=== PATIENT | male | born 1995 | race Caucasian/White ===

== ENCOUNTER 2016-02-01 14:59 | Outpatient (RCR) | payer OTHER ==
[~2016-02-01 14:59] MED LIST: DYNAPEN 250MG250 MG PO; HUMALOG100 U/ML; INSULIN 50/5100 U/ML IJ; LANTUS100 U/ML SQ; NOVOLOG 100U100 U/M1 SQ; insulin
== END 2016-04-19 ==
LOC: WSOH
DX: S51.802A Unspecified open wound of left forearm, initial encounter (principal)

== ENCOUNTER 2016-06-15 09:04 | Inpatient (IN) | payer BC ==
[~2016-06-15] VITALS: Ht 182.9 cm; Wt 85.9 kg
[2016-06-15] VITALS (175 sets, daily range): BP systolic 112–133; BP diastolic 60–68; PULSE 91–115; TEMP 97.1–99.3; O2SAT 97–100
[2016-06-15 09:36] LABS: VENOUS BLOOD GAS BE -21.1 (-4-4); VENOUS BLOOD GAS SAO2 59.1 % (60-80)
[2016-06-15 09:37] LABS: VENOUS BLOOD GAS SITE VENIPUNCTURE
[2016-06-15 09:52] LABS: BASO % 0.2 % (0.0-2.0); EOS % 0.1 % (0-4.0); GRAN % 83.7 % (42.2-75.2); HEMATOCRIT 50.3 % (42.0-52.0); HEMOGLOBIN 17.1 g/dl (13.5-18.0); LYMPH # 2.3 (1.2-3.4); LYMPH % 12.2 % (20.0-51.0); MEAN CELL VOLUME 87 fl (80.0-100.0); MEAN CORPUSCULAR HEMOGLOBIN 30 pg (27.0-31.0); MEAN CORPUSCULAR HGB CONC 34 g/dl (33.0-37.0); MEAN PLATELET VOLUME 10.5 fl (7.4-10.4); MONO # 0.6 (0.1-0.6); MONO % 3.4 % (1.7-9.3); PLATELET COUNT 344 K/mm3 (130-400); RED BLOOD COUNT 5.79 M/mm3 (4.20-5.60); REDCELL DISTRIBUTION WIDTH-CV 13.1 % (11.5-14.5); WHITE BLOOD COUNT 19.1 K/mm3 (4.8-10.8)
[2016-06-15 10:07] LABS: ADJUSTED CALCIUM 8.8 mg/dL (8.4-10.2); ALANINE AMINOTRANSFERASE 36 U/L (21-72); ALBUMIN 5.2 gm/dL (3.5-5.0); ALKALINE PHOSPHATASE 147 U/L (50-136); ANION GAP 27 mmol/L (7-16); BILIRUBIN,TOTAL 0.8 mg/dL (0.0-1.0); BLOOD UREA NITROGEN 13 mg/dL (9-20); CALCIUM 9.8 mg/dL (8.4-10.2); CHLORIDE 101 mmol/L (98-107); CREATININE, serum 1.13 mg/dL (0.66-1.25); GLUCOSE 348 mg/dL (74-106); LIPASE 94 U/L (23-300); SODIUM 137 mmol/L (137-145); TOTAL PROTEIN 8.6 gm/dL (6.4-8.2)
[2016-06-15 10:10] LABS: C-REACTIVE PROTEIN < 0.5 mg/dL (0.0-0.9); CARBON DIOXIDE 8 mmol/L (22-30)
[2016-06-15 11:13] LABS: PH 5 (5-8); SQUAMOUS EPITHELIAL 0-2 /hpf; URINE APPEARANCE Clear; URINE BACTERIA None Seen /hpf; URINE BILIRUBIN Negative (NEGATIVE); URINE BLOOD 3+ (NEGATIVE); URINE COLOR Straw; URINE GLUCOSE 3+ (NEGATIVE); URINE KETONE 2+ (NEGATIVE); URINE RBC 0-2 /hpf; URINE UROBILINOGEN Negative (NEGATIVE); URINE WBC 0-2 /hpf
[2016-06-15] MEDS ORDERED: TRESIBA FL200 UNIT/1 SQ (11:19)
[2016-06-15 16:09] LABS: CALCIUM 8.8 mg/dL (8.4-10.2); CREATININE, serum 0.93 mg/dL (0.66-1.25); POTASSIUM 4.5 mmol/L (3.4-5.0)
[2016-06-15 18:00] LABS: CALCIUM 8.8 mg/dL (8.4-10.2); CREATININE, serum 0.96 mg/dL (0.66-1.25); POTASSIUM 4.6 mmol/L (3.4-5.0)
[2016-06-15 19:50] LABS: CALCIUM 8.8 mg/dL (8.4-10.2); CREATININE, serum 0.98 mg/dL (0.66-1.25); POTASSIUM 4.4 mmol/L (3.4-5.0)
[2016-06-15 22:31] LABS: INFLUENZA B NEGATIVE
[2016-06-15 23:12] LABS: CALCIUM 8.9 mg/dL (8.4-10.2); CREATININE, serum 0.84 mg/dL (0.66-1.25); POTASSIUM 3.9 mmol/L (3.4-5.0)
[2016-06-16] VITALS (9 sets, daily range): BP systolic 110–126; BP diastolic 61–83; PULSE 68–96; TEMP 97.1–99; O2SAT 98–99
[2016-06-16 01:19] LABS: CALCIUM 8.9 mg/dL (8.4-10.2); CREATININE, serum 0.84 mg/dL (0.66-1.25); POTASSIUM 4.3 mmol/L (3.4-5.0)
[2016-06-16 02:30] LABS: CALCIUM 8.9 mg/dL (8.4-10.2); CREATININE, serum 0.88 mg/dL (0.66-1.25)
[2016-06-16 06:29] LABS: BASO % 0.1 % (0.0-2.0); EOS # 0.1 (0.0-0.7); GRAN # 4.9 (1.4-6.5); GRAN % 61.6 % (42.2-75.2); HEMATOCRIT 39.7 % (42.0-52.0); HEMOGLOBIN 14.1 g/dl (13.5-18.0); LYMPH # 2.2 (1.2-3.4); LYMPH % 27.5 % (20.0-51.0); MEAN CELL VOLUME 83 fl (80.0-100.0); MEAN CORPUSCULAR HEMOGLOBIN 29 pg (27.0-31.0); MEAN CORPUSCULAR HGB CONC 36 g/dl (33.0-37.0); MONO # 0.8 (0.1-0.6); MONO % 9.5 % (1.7-9.3); PLATELET COUNT 213 K/mm3 (130-400); RED BLOOD COUNT 4.78 M/mm3 (4.20-5.60); WHITE BLOOD COUNT 7.9 K/mm3 (4.8-10.8)
[2016-06-16 06:35] LABS: CALCIUM 8.8 mg/dL (8.4-10.2); CREATININE, serum 0.77 mg/dL (0.66-1.25); MAGNESIUM 1.8 mg/dL (1.6-2.3); POTASSIUM 3.7 mmol/L (3.4-5.0)
[2016-06-16 13:48] LABS: CALCIUM 8.7 mg/dL (8.4-10.2); CREATININE, serum 0.74 mg/dL (0.66-1.25); MAGNESIUM 1.6 mg/dL (1.6-2.3); PHOSPHOROUS 1.4 mg/dL (2.5-4.5); POTASSIUM 3.7 mmol/L (3.4-5.0)
[2016-06-16 16:26] LABS: CALCIUM 8.8 mg/dL (8.4-10.2); CREATININE, serum 0.81 mg/dL (0.66-1.25); POTASSIUM 3.6 mmol/L (3.4-5.0)
[2016-06-16 22:36] LABS: CALCIUM 8.8 mg/dL (8.4-10.2); CREATININE, serum 0.68 mg/dL (0.66-1.25); POTASSIUM 3.2 mmol/L (3.4-5.0)
[2016-06-17] VITALS: BP 104/53; PULSE 56; TEMP 98.1
[2016-06-17 04:00] VITALS: BP 117/76; PULSE 69; TEMP 98.4
[2016-06-17 05:49] LABS: BASO % 0.2 % (0.0-2.0); EOS # 0.1 (0.0-0.7); EOS % 2.4 % (0-4.0); GRAN # 1.9 (1.4-6.5); GRAN % 38.5 % (42.2-75.2); HEMOGLOBIN 13.1 g/dl (13.5-18.0); LYMPH # 2.5 (1.2-3.4); LYMPH % 50.7 % (20.0-51.0); MEAN CELL VOLUME 82 fl (80.0-100.0); MEAN CORPUSCULAR HEMOGLOBIN 30 pg (27.0-31.0); MEAN CORPUSCULAR HGB CONC 36 g/dl (33.0-37.0); MEAN PLATELET VOLUME 10.2 fl (7.4-10.4); MONO # 0.4 (0.1-0.6); PLATELET COUNT 193 K/mm3 (130-400); RED BLOOD COUNT 4.43 M/mm3 (4.20-5.60); REDCELL DISTRIBUTION WIDTH-CV 13.2 % (11.5-14.5)
[2016-06-17 05:57] LABS: HEMATOCRIT 36.5 % (42.0-52.0)
[2016-06-17 06:08] LABS: CALCIUM 8.7 mg/dL (8.4-10.2); CREATININE, serum 0.77 mg/dL (0.66-1.25); POTASSIUM 3.2 mmol/L (3.4-5.0)
[2016-06-17 08:00] VITALS: BP 125/84; PULSE 77; TEMP 97.8
== END 2016-06-17 13:50 | disposition home or self-care (01) | DRG 639 ==
LOC: COL.ER 09:04 → ICU 10:28 → IMCU 06-16 18:27 → ICU 06-16 18:27 → IMCU 06-17 13:50
PROVIDERS: Anesthesiology Critical Care Medicine; Emergency Medicine; Internal Medicine
DX: E10.10 Type 1 diabetes mellitus with ketoacidosis without coma (principal); E86.0 Dehydration; Z79.4 Long term (current) use of insulin
CPT/HCPCS: 99223-AI; 99233-AI; 99239; J1650; J1815; J2405; J3475; J3480; J7030; J7131

== ENCOUNTER → 2017-04-26 | Outpatient (CLI) | payer BC ==
[~2017-04-26] MED LIST changes: +TRESIBA FL200 UNIT/1 SQ
[2017-04-26 11:53] LABS: BASO % 0.1 % (0.0-2.0); EOS # 0.3 (0.0-0.7); EOS % 2.9 % (0-4.0); GRAN # 5.5 (1.4-6.5); HEMATOCRIT 41.2 % (42.0-52.0); LYMPH # 2.6 (1.2-3.4); LYMPH % 29.1 % (20.0-51.0); MEAN CELL VOLUME 83 fl (80.0-100.0); MEAN CORPUSCULAR HEMOGLOBIN 30 pg (27.0-31.0); MEAN CORPUSCULAR HGB CONC 36 g/dl (33.0-37.0); MEAN PLATELET VOLUME 9.2 fl (7.4-10.4); MONO # 0.6 (0.1-0.6); MONO % 6.5 % (1.7-9.3); PLATELET COUNT 299 K/mm3 (130-400); RED BLOOD COUNT 4.98 M/mm3 (4.20-5.60); REDCELL DISTRIBUTION WIDTH-CV 12.1 % (11.5-14.5)
[2017-04-26 13:06] LABS: ALBUMIN 4.1 gm/dL (3.5-5.0); BILIRUBIN,TOTAL 0.5 mg/dL (0.0-1.0); CALCIUM 9.3 mg/dL (8.4-10.2); CREATININE, serum 0.82 mg/dL (0.66-1.25); POTASSIUM 4.3 mmol/L (3.4-5.0); TOTAL PROTEIN 7.3 gm/dL (6.4-8.2)
== END ==
LOC: COL.LAB 10:39
PROVIDERS: Family Medicine
DX: E10.65 Type 1 diabetes mellitus with hyperglycemia (principal)

== ENCOUNTER 2019-01-07 13:48 | Inpatient (IN) | payer BC ==
[2019-01-07] VITALS (350 sets, daily range): BP systolic 140–145; BP diastolic 76–81; PULSE 87–121; TEMP 97.5–98.7; O2SAT 95–100
[~2019-01-07] VITALS: Ht 182.9 cm; Wt 84.5 kg
[2019-01-07 14:34] LABS: BASO # 0.1 (0.0-0.2); BASO % 0.3 % (0.0-2.0); EOS % 0.1 % (0-4.0); GRAN # 12.4 (1.4-6.5); GRAN % 79.5 % (42.2-75.2); HEMATOCRIT 49.8 % (42.0-52.0); HEMOGLOBIN 17.5 g/dl (13.5-18.0); LYMPH # 2.1 (1.2-3.4); LYMPH % 13.4 % (20.0-51.0); MEAN CELL VOLUME 85 fl (80.0-100.0); MEAN CORPUSCULAR HEMOGLOBIN 30 pg (27.0-31.0); MEAN CORPUSCULAR HGB CONC 35 g/dl (33.0-37.0); MONO % 6.3 % (1.7-9.3); PLATELET COUNT 279 K/mm3 (130-400); RED BLOOD COUNT 5.85 M/mm3 (4.20-5.60); REDCELL DISTRIBUTION WIDTH-CV 12.6 % (11.5-14.5)
[2019-01-07 14:43] LABS: ALBUMIN 5.2 gm/dL (3.5-5.0); BILIRUBIN,TOTAL 0.8 mg/dL (0.0-1.0); CALCIUM 9.5 mg/dL (8.4-10.2); CREATININE, serum 1.03 (0.66-1.25); POTASSIUM 4.5 mmol/L (3.4-5.0); TOTAL PROTEIN 9.1 gm/dL (6.4-8.2)
[2019-01-07] MEDS ORDERED: TRESIBA FL200 UNIT/1 SQ (14:46)
[2019-01-07 17:38] LABS: CALCIUM 8.7 mg/dL (8.4-10.2); CREATININE, serum 0.97 (0.66-1.25); MAGNESIUM 1.9 mg/dL (1.6-2.3); PHOSPHOROUS 2.8 mg/dL (2.5-4.5); POTASSIUM 4.6 mmol/L (3.4-5.0)
[2019-01-07 17:58] LABS: ARTERIAL BLD GAS O2 SATURATION 98.2 % (92-100); ARTERIAL BLD GAS TCO2 CT 9.1; ARTERIAL BLOOD GAS BASE EXCESS -16.6 (-2-2); ARTERIAL BLOOD GAS HCO3 8.5 meq/L (22-26); ARTERIAL BLOOD GAS PO2 109.5 mmHg (80-100); ARTERIAL BLOOD GAS pH 7.23 (7.35-7.45)
[2019-01-07 17:59] LABS: ARTERIAL BLOOD GAS PCO2 20.7 mmHg (35-45)
[2019-01-07 18:31] LABS: COLLECTION METHOD CLEAN CATCH
[2019-01-07 18:40] LABS: MUCOUS Present /lpf; PH 6 (5-8); SQUAMOUS EPITHELIAL None Seen /hpf; URINE APPEARANCE Clear; URINE BACTERIA None Seen /hpf; URINE BILIRUBIN Negative (NEGATIVE); URINE BLOOD 1+ (NEGATIVE); URINE COLOR Straw; URINE GLUCOSE 3+ (NEGATIVE); URINE KETONE 2+ (NEGATIVE); URINE LEUKOCYTE ESTERASE Negative (NEGATIVE); URINE NITRATE Negative (NEGATIVE); URINE PROTEIN(semi-quant) 1+ (NEGATIVE); URINE RBC None Seen /hpf; URINE UROBILINOGEN Negative (NEGATIVE); URINE WBC 0-2 /hpf
[2019-01-07 18:59] LABS: HYALINE CAST >12 /lpf
[2019-01-07 19:14] LABS: CALCIUM 8.9 mg/dL (8.4-10.2); CREATININE, serum 0.85 (0.66-1.25); POTASSIUM 4.1 mmol/L (3.4-5.0)
--- NOTE | 2019-01-07 19:48 | NUR ---
CO2 REMAINS AT 11,REPORTED TO SANTY KELLY, NO NEW ORDERS AT THIS TIME, WILL CONTINUE INSULIN DRIP AND MONITORING.
[2019-01-07 21:18] LABS: CALCIUM 8.7 mg/dL (8.4-10.2); CREATININE, serum 0.76 (0.66-1.25); POTASSIUM 3.9 mmol/L (3.4-5.0)
--- NOTE | 2019-01-07 22:01 | NUR ---
3 BS AT GOAL, WILL RECHECK AGAIN IN 2 HOURS PER PROTOCOL.
[2019-01-07 23:21] LABS: CALCIUM 8.9 mg/dL (8.4-10.2); CREATININE, serum 0.77 (0.66-1.25); POTASSIUM 3.8 mmol/L (3.4-5.0)
[2019-01-08] VITALS (243 sets, daily range): BP systolic 126–144; BP diastolic 75–86; PULSE 70–102; TEMP 97.5–98.1; O2SAT 98–100
[2019-01-08 01:31] LABS: CALCIUM 8.7 mg/dL (8.4-10.2); CREATININE, serum 0.72 (0.66-1.25); POTASSIUM 3.6 mmol/L (3.4-5.0)
--- NOTE | 2019-01-08 01:56 | NUR ---
INSULIN DRIP ON HOLD PER PROTOCOL, WILL RECHECK IN 30 MINS.
[2019-01-08 03:23] LABS: CALCIUM 8.6 mg/dL (8.4-10.2); CREATININE, serum 0.64 (0.66-1.25); POTASSIUM 3.6 mmol/L (3.4-5.0)
[2019-01-08 05:29] LABS: BASO % 0.2 % (0.0-2.0); EOS # 0.1 (0.0-0.7); EOS % 1.3 % (0-4.0); GRAN # 5.2 (1.4-6.5); LYMPH # 2.9 (1.2-3.4); LYMPH % 31.8 % (20.0-51.0); MEAN CELL VOLUME 84 fl (80.0-100.0); MEAN CORPUSCULAR HEMOGLOBIN 30 pg (27.0-31.0); MEAN CORPUSCULAR HGB CONC 36 g/dl (33.0-37.0); MEAN PLATELET VOLUME 8.6 fl (7.4-10.4); MONO # 0.9 (0.1-0.6); MONO % 9.5 % (1.7-9.3); PLATELET COUNT 193 K/mm3 (130-400); RED BLOOD COUNT 4.77 M/mm3 (4.20-5.60); REDCELL DISTRIBUTION WIDTH-CV 12.6 % (11.5-14.5)
[2019-01-08 05:38] LABS: CALCIUM 8.6 mg/dL (8.4-10.2); CREATININE, serum 0.66 (0.66-1.25); POTASSIUM 3.5 mmol/L (3.4-5.0)
[2019-01-08 05:53] LABS: HEMOGLOBIN 14.4 g/dl (13.5-18.0)
[2019-01-08 07:30] LABS: CALCIUM 8.8 mg/dL (8.4-10.2); CREATININE, serum 0.78 (0.66-1.25); POTASSIUM 3.6 mmol/L (3.4-5.0)
[2019-01-08 09:19] LABS: CALCIUM 8.7 mg/dL (8.4-10.2); CREATININE, serum 0.73 (0.66-1.25); POTASSIUM 3.5 mmol/L (3.4-5.0)
--- NOTE | 2019-01-08 10:59 | NUR ---
Initial visit; Patient states that he is doing well and thanks Gift Manager for looking in on him and offering God's blessings.
[2019-01-08 12:53] LABS: CALCIUM 8.6 mg/dL (8.4-10.2); CREATININE, serum 0.7 (0.66-1.25); POTASSIUM 4.2 mmol/L (3.4-5.0)
[2019-01-08 16:36] LABS: CALCIUM 8.9 mg/dL (8.4-10.2); CREATININE, serum 0.71 (0.66-1.25); POTASSIUM 3.9 mmol/L (3.4-5.0)
[2019-01-08 20:26] LABS: CALCIUM 8.6 mg/dL (8.4-10.2); CREATININE, serum 0.74 (0.66-1.25); POTASSIUM 3.4 mmol/L (3.4-5.0)
[2019-01-09] VITALS: BP 141/80; PULSE 79; TEMP 98.1
[2019-01-09 00:54] LABS: CALCIUM 8.6 mg/dL (8.4-10.2); CREATININE, serum 0.59 (0.66-1.25); POTASSIUM 3.4 mmol/L (3.4-5.0)
--- NOTE | 2019-01-09 03:40 | NUR ---
BS AT 53, OJ GIVEN AND SOME CRACKERS. WILL RE-CHECK IN 15 MINS. VSS. PT FEELS OKAY OTHER THAN FEELING A LITTLE BIT SHAKY HE VERBALIZED. WILL CONTINUE TO MONITOR.
[2019-01-09 04:00] VITALS: BP 141/76; PULSE 88; TEMP 97.7
[2019-01-09 04:36] LABS: EOS # 0.1 (0.0-0.7); GRAN # 2.8 (1.4-6.5); GRAN % 53.8 % (42.2-75.2); HEMOGLOBIN 12.7 g/dl (13.5-18.0); LYMPH # 1.9 (1.2-3.4); LYMPH % 35.4 % (20.0-51.0); MEAN CELL VOLUME 85 fl (80.0-100.0); MEAN CORPUSCULAR HEMOGLOBIN 30 pg (27.0-31.0); MEAN CORPUSCULAR HGB CONC 35 g/dl (33.0-37.0); MONO # 0.5 (0.1-0.6); MONO % 9.6 % (1.7-9.3); PLATELET COUNT 170 K/mm3 (130-400); RED BLOOD COUNT 4.25 M/mm3 (4.20-5.60); REDCELL DISTRIBUTION WIDTH-CV 12.6 % (11.5-14.5)
[2019-01-09 04:37] LABS: HEMATOCRIT 36.1 % (42.0-52.0)
[2019-01-09 04:44] LABS: CALCIUM 8.3 mg/dL (8.4-10.2); CREATININE, serum 0.65 (0.66-1.25); POTASSIUM 3.1 mmol/L (3.4-5.0)
[2019-01-09 08:00] VITALS: BP 129/83; PULSE 85
[2019-01-09 08:12] LABS: CALCIUM 8.5 mg/dL (8.4-10.2); CREATININE, serum 0.59 (0.66-1.25); POTASSIUM 3.3 mmol/L (3.4-5.0)
--- NOTE | 2019-01-09 09:23 | NUR ---
[employer] student met with the patient to discuss a discharge plan. The patient lives alone in [place]. The patient reports independence with ADLs and does not use DME. The patient's PCP is Dr. Steven and patient receives medications from [facility] with no difficulties. The patient does not have advanced directives in the EMR. The patient plans to return home upon discharge with his mother providing transport. There are no additional needs at this time.
--- NOTE | 2019-01-09 10:09 | NUR ---
PATIENT DISCHARGES AT THIS TIME. DISCHARGE PACKET AND EDUCATION REVIEWED. QUESTIONS ANSWERED. PATIENT LEAVES WITH HIS MOM AT THIS TIME.
== END 2019-01-09 10:05 | disposition home or self-care (01) | DRG 638 ==
LOC: EUO 13:48 → ICU 16:37
PROVIDERS: Family Medicine; Nurse Practitioner Family; Student in an Organized Health Care Education/Training Program; ADMIT Student in an Organized Health Care Education/Training Program
DX: E10.10 Type 1 diabetes mellitus with ketoacidosis without coma (principal); R65.10 Systemic inflammatory response syndrome (SIRS) of non-infectious origin without acute organ dysfunction; Z79.4 Long term (current) use of insulin
CPT/HCPCS: OP; 99232-AI; 99239; J1815; J7030

== ENCOUNTER 2020-07-22 11:00 | Emergency (ER) | payer OTHER ==
[~2020-07-22] VITALS: Ht 182.9 cm; Wt 84.1 kg
[2020-07-22 11:06] VITALS: TEMP 98.4
[2020-07-22] MEDS ORDERED: CEPHALEXIN500 M1 PO (11:59)
[2020-07-22 12:13] VITALS: BP 138/88; PULSE 95
== END 2020-07-22 12:13 | disposition home or self-care (01) ==
LOC: COL.ER 11:00
DX: S61.213A Laceration without foreign body of left middle finger without damage to nail, initial encounter (principal); E10.9 Type 1 diabetes mellitus without complications; Z79.4 Long term (current) use of insulin; W26.8XXA Contact with other sharp object(s), not elsewhere classified, initial encounter; Y92.59 Other trade areas as the place of occurrence of the external cause; Y99.0 Civilian activity done for income or pay